=== PATIENT | female | born 1975 | race Two or more races ===

== ENCOUNTER 2021-04-03 22:59 | Inpatient (IN) | payer OTHER ==
[~2021-04-03] VITALS: Ht 167.6 cm; Wt 81.6 kg
== END 2021-04-05 15:29 | disposition home or self-care (01) | DRG 343 ==
LOC: ER 22:59 → SEC-K 04-04 06:14 → SURG 04-04 06:14
PROVIDERS: ADMIT Surgery; ATTEND Surgery
PROC: BW2110Z Computerized Tomography (CT Scan) of Abdomen and Pelvis using Low Osmolar Contrast, Unenhanced and Enhanced (ICD-10-PCS; 2021-04-04)
PROC: 0DTJ4ZZ Resection of Appendix, Percutaneous Endoscopic Approach (ICD-10-PCS; principal; 2021-04-04 07:00)
DX: K35.80 Unspecified acute appendicitis (principal); Z20.822 Contact with and (suspected) exposure to COVID-19

== ENCOUNTER 2022-05-04 12:31 | Outpatient (CLI) | payer OTHER | END 2022-05-04 12:34 | disposition home or self-care (01) | LOC: SONOGRAMA 12:31 | PROVIDERS: ATTEND Surgery | DX: N60.11 Diffuse cystic mastopathy of right breast (principal); N60.12 Diffuse cystic mastopathy of left breast ==